=== PATIENT | male | born 1945 | race African-American/Black ===

== ENCOUNTER 2024-10-08 12:21 | Emergency (ER) | payer MEDICARE, OTHER, SELFPAY ==
--- NOTE | ~2024-10-08 | CT_ITS ---
EXAMINATION: CT facial bones wo con DATE: 10/08/2024 14:10 INDICATION: Fall with facial injury and hematoma about the right orbit. TECHNIQUE: Computed tomography (CT) of the facial bones and maxillofacial region was performed withou t intravenous contrast. Coronal reconstructions were obtained. Automated exposure control and iterati ve reconstruction technique were employed. The dose-length product was 494.39 mGy-cm. COMPARISON: None. FINDINGS: Soft tissue swelling with subcutaneous edema centered about the right malar region. There is approxim ately 1.5 similar round likely subcutaneous hematoma along the superolateral right orbital rim. Orbit s are otherwise unremarkable with intact appearing globes and no post septal inflammatory stranding. No maxillofacial fractures. Specifically the nasal bones, zygomatic arches, mandible and real of the orbits and paranasal sinuses are all intact. Mild mucosal thickening the bilateral ethmoid sinuses. Mucous retention cyst in the right maxillary sinus. Nasal septum remains midline with no fracture. Mo derate to severe cervical spondylosis. IMPRESSION: 1. No maxillofacial fractures. Reviewed, dictated and finalized at location A. ONAL CONTROLLER
--- NOTE | ~2024-10-08 | CT_ITS ---
History: Fall PROCEDURE: CT cervical spine without intravenous contrast. COMPARISON: None TECHNIQUE: Multiple contiguous axial images of the cervical spine were performed without the administration of i ntravenous contrast. DLP: 506 mGy-cm FINDINGS: Straightening and slight reversal of the normal curvature of the cervical spine is identified, likely muscular in origin. Significant degenerative disease is identified, with osteophyte formation, disc space narrowing, endp late changes and facet arthropathy. No acute fractures are present. The bilateral lung apices are unremarkable. No soft tissue abnormality is present. The airway is patent. Impression: Straightening and slight reversal of the normal curvature of the cervical spine, likely muscular in o rigin. Significant degenerative disease, without acute fracture. Reviewed, dictated and finalized at location A. [employer]UCTION [employer]PENTERS HELPER Impression: Straightening and slight reversal of the normal curvature of the cervical spine , likely muscular in origin. Significant degenerative disease, without acute fracture.
--- NOTE | ~2024-10-08 | CT_ITS ---
History: Fall PROCEDURE: CT head without contrast. COMPARISON: None TECHNIQUE: Axial imaging of the head performed from the skull base to the vertex without IV contrast. Sagittal a nd coronal reformations obtained. DLP: 605 mGy-cm FINDINGS: The ventricles are normal in size, shape and position. There is no mass, mass effect or midline shift. There is no abnormal extra-axial fluid collection or intracranial hemorrhage. Visualized paranasal sinuses are clear. The mastoid air cells are well aerated. No acute displaced fractures within the overlying cranium. Impression: No acute intracranial hemorrhage or suspicious mass effect. Reviewed, dictated and finalized at location A. ING ATTORNEY Impression: No acute intracranial hemorrhage or suspicious mass effect.
[2024-10-08 12:50] VITALS: BP 146/67; PULSE 88; RESP 20; TEMP 36.5; O2SAT 95
--- NOTE | 2024-10-08 13:47 | ED.GENADULT ---
HPI - General Adult General Chief complaint: Head Injury Stated complaint: fall, Time Seen by Provider: 10/08/24 13:47 Focused HPI: Diego Perez is a 78 yo male who presents with reports of mechanical fall down two stairs hitting the right side of his head on the baseboard 2 days ago. He denies LOC. He has a hematoma to the right eye + ecchymosis / denies LOC - No cervical / thoracic / lumbar spinal tenderness with palpation GENERAL: Well-appearing, well-nourished, and in no acute distress. HEAD: Normocephalic, atraumatic. CHEST: Clear to auscultation. ?No respiratory distress. HEART: Regular rate and rhythm.? NEURO: ?Alert and oriented x3. Patient screened in triage and initial orders placed.? ?Additional care and disposition to be based upon?diagnostic testing and treatment. Related Data Allergies Allergy/AdvReac Type Severity Reaction Status Date / Time No Known Allergies Allergy Verified 10/08/24 12:22 Course Vital Signs Vital signs: Vital Signs Temperature 36.5 C 10/08/24 12:50 Pulse Rate 88 10/08/24 12:50 Respiratory Rate 20 10/08/24 12:50 Blood Pressure 146/67 H 10/08/24 12:50 Pulse Oximetry 95 10/08/24 12:50 Temperature 36.5 C 10/08/24 12:50 Pulse Rate 93 10/08/24 16:31 Respiratory Rate 17 10/08/24 16:31 Blood Pressure 130/71 10/08/24 16:31 Pulse Oximetry 96 10/08/24 16:31 Medical Decision Making Vital Signs Vital Signs: Vital Signs Temperature 36.5 C 10/08/24 12:50 Pulse Rate 88 10/08/24 12:50 Respiratory Rate 20 10/08/24 12:50 Blood Pressure 146/67 H 10/08/24 12:50 Pulse Oximetry 95 10/08/24 12:50 Temperature 36.5 C 10/08/24 12:50 Pulse Rate 93 10/08/24 16:31 Respiratory Rate 17 10/08/24 16:31 Blood Pressure 130/71 10/08/24 16:31 Pulse Oximetry 96 10/08/24 16:31 Discharge Plan Discharge Clinical Impression: Hematoma Patient Disposition: Home, Self-Care Condition: Stable Instructions: Antibiotic Form, Hematoma (ED) Additional Instructions: Please follow-up with your primary care physician. Return to ED if develops any new or worsening symptoms. Your lump will slowly absorb over time. Patient Language: [place] Follow-up/Referrals: PHYSICIAN NOT ON STAFF,NONSTAFF [Non-Staff] -
--- NOTE | 2024-10-08 15:13 | ED_ITS ---
HPI - General Adult General Chief complaint: Head Injury Stated complaint: fall, Time Seen by Provider: 10/08/24 13:47 History of Present Illness HPI narrative: This is a 78-year-old male presenting 2 days after a slip and fall. He was going into his basement holding to drink and dinner and then slipped falling forward and striking right above his right eye. He developed a lump. He came in today to make sure that nothing serious was injured. He has no complaints this time. No use of blood thinners. No other injuries. Related Data Allergies Allergy/AdvReac Type Severity Reaction Status Date / Time No Known Allergies Allergy Verified 10/08/24 12:22 Exam Narrative: APPEARANCE: No apparent distress. Head: Hematoma over the right lateral orbit EYES: EOMI, no infraorbital paresthesias no evidence of entrapment NOSE: Atraumatic NECK: Trachea midline RESPIRATORY: No increased rate of breathing CARDIOVASCULAR: RRR, ABDOMINAL: Non-distended MUSCULOSKELETAl: No obvious deformities NEURO: Alert. Moving 4/4 extremities SKIN:: Warm, dry. Normal color PSYCHIATRIC: Normal affect Course Vital Signs Vital signs: Vital Signs Temperature 97.7 F 10/08/24 12:50 Pulse Rate 88 10/08/24 12:50 Respiratory Rate 20 10/08/24 12:50 Blood Pressure 146/67 H 10/08/24 12:50 Pulse Oximetry 95 10/08/24 12:50 Temperature 97.7 F 10/08/24 12:50 Pulse Rate 88 10/08/24 12:50 Respiratory Rate 20 10/08/24 12:50 Blood Pressure 146/67 H 10/08/24 12:50 Pulse Oximetry 95 10/08/24 12:50 Medical Decision Making [facility] Narrative Medical decision making narrative: -Course: 78-year-old male presenting 2 days after a fall. CT imaging without serious traumatic injury. He does have a small hematoma that will resolve on its own. Patient discharged.. Given return precautions -DDX includes but is not limited to: Hematoma, ICH, concussion Vital Signs Vital Signs: Vital Signs Temperature 97.7 F 10/08/24 12:50 Pulse Rate 88 10/08/24 12:50 Respiratory Rate 20 10/08/24 12:50 Blood Pressure 146/67 H 10/08/24 12:50 Pulse Oximetry 95 10/08/24 12:50 Temperature 97.7 F 10/08/24 12:50 Pulse Rate 88 10/08/24 12:50 Respiratory Rate 20 10/08/24 12:50 Blood Pressure 146/67 H 10/08/24 12:50 Pulse Oximetry 95 10/08/24 12:50 Discharge Plan Discharge Clinical Impression: Hematoma Patient Disposition: Home, Self-Care Condition: Stable Instructions: Antibiotic Form, Hematoma (ED) Additional Instructions: Please follow-up with your primary care physician. Return to ED if develops any new or worsening symptoms. Your lump will slowly absorb over time. Patient Language: [place] Follow-up/Referrals: PHYSICIAN NOT ON STAFF,NONSTAFF [Non-Staff] -
[2024-10-08 16:31] VITALS: BP 130/71; PULSE 93; RESP 17; O2SAT 96
== END 2024-10-08 16:32 | disposition home or self-care (01) ==
LOC: ANHED 15:31
PROVIDERS: Emergency Provider Emergency Medicine
DX: S00.11XA Contusion of right eyelid and periocular area, initial encounter (principal); W01.0XXA Fall on same level from slipping, tripping and stumbling without subsequent striking against object, initial encounter
CPT/HCPCS: 70450; 70486; 72125; 99284